=== PATIENT | male | born 1950 | race Caucasian/White ===

== ENCOUNTER 2019-04-16 21:38 | Emergency (ER) | payer MEDICARE, MEDICAID ==
[~2019-04-16] VITALS: Ht 167.6 cm; Wt 102.9 kg
[~2019-04-16 21:38] MED LIST: NO HOME MEDS
[2019-04-16] MEDS ORDERED: normal saline 1000ML IV soln IVB ONE (22:45)
[2019-04-16] MEDS ORDERED: ondansetron/PF 4mg/2ml inj IV ONE (23:05)
[2019-04-16] MEDS ORDERED: morphine 4 MG/ML inj SYRINge IV ONE (23:05)
[2019-04-16 23:36] LABS: BASOPHILS % (AUTO) 0.2 % (0-1); EOSINOPHILS % (AUTO) 0.1 % (0-6); HEMATOCRIT 39.4 % (42.0-52.0); HEMOGLOBIN 13.4 g/dl (14.0-17.9); LYMPHOCYTES # (AUTO) 1.5 X10'3 (1.1-4.8); LYMPHOCYTES % (AUTO) 10.5 % (21-51); MEAN CORPUSCULAR HEMOGLOBIN 29.2 PG (27.0-31.0); MEAN PLATELET VOLUME 8.6 FL (7.4-10.4); MONOCYTES # (AUTO) 1.4 X10'3 (0-0.9); MONOCYTES % (AUTO) 9.3 % (2-12); NEUTROPHILS # (AUTO) 11.8 X10'3 (1.8-7.7); NEUTROPHILS % (AUTO) 79.9 % (42-75); PLATELET COUNT 231 X10'3 (140-440); RED BLOOD COUNT 4.58 X10'6 (4.70-6.10); RED CELL DISTRIBUTION WIDTH 15.7 % (11.5-14.5); WHITE BLOOD COUNT 14.7 X10'3 (4.5-11.0)
--- NOTE | 2019-04-16 23:38 | NUR ---
Patient with urinary retention at clinic today was bladder scanned and told there was 700cc urine. I inserted george without difficulty, less than 50cc of bloody urine out. Bladder scan here in ER shows zero. Patient in pain and feels like bladder is full. Notified MD, CT scan ordered. Medicated for pain.
[2019-04-16 23:46] LABS: ALANINE AMINOTRANSFERASE 40 U/L (12-78); ALBUMIN 3.2 G/DL (3.4-5.0); ALBUMIN/GLOBULIN RATIO 0.7 (1.1-1.5); ALKALINE PHOSPHATASE 99 IU/L (46-116); ANION GAP 9 (8-16); ASPARTATE AMINO TRANSFERASE 25 U/L (10-37); BILIRUBIN,TOTAL 1.1 MG/DL (0.1-1.0); BLOOD UREA NITROGEN 9 MG/DL (7-18); BUN/CREATININE RATIO 9.3 (5.4-32.0); CALCIUM 8.6 MG/DL (8.5-10.1); CHLORIDE 102 MMOL/L (99-107); CREATININE 0.97 MG/DL (0.60-1.10); GLUCOSE 124 MG/DL (70-104); SODIUM 137 MMOL/L (135-145); TOTAL CARBON DIOXIDE 25.7 MMOL/L (24-32); TOTAL PROTEIN 7.5 G/DL (6.4-8.2); eGFR 77 ML/MIN
[2019-04-16 23:52] LABS: POTASSIUM 2.8 MMOL/L (3.5-5.1)
[2019-04-17] MEDS ORDERED: potassium Cl 20 mEq SR tablet PO ONE
[2019-04-17] MEDS ORDERED: magnesium oxide 400mg tablet PO ONE
[2019-04-17 00:05] LABS: COLOR,URINE ORANGE (Yellow); UA COLLECTION TYPE NON-SPECIFIED
[2019-04-17 00:06] LABS: CLARITY,URINE SLIGHTLY CLOUDY (Clear)
[2019-04-17 00:08] LABS: MUCUS STRANDS MANY /LPF (Neg); SQUAMOUS EPITHELIAL CELL,UR MODERATE /LPF (FEW)
[2019-04-17 00:09] LABS: WBC,URINE 30-50 /HPF (0-4)
[2019-04-17 00:10] LABS: TRANSITIONAL EPI CELLS,URINE FEW /HPF
[2019-04-17 00:11] LABS: BACTERIA,URINE FEW /HPF (Neg); RBC,URINE NONE SEEN /HPF (0-2)
[2019-04-17] MEDS ORDERED: morphine 4 MG/ML inj SYRINge IV ONE (01:15)
[2019-04-17 01:21] VITALS: BP 146/87
[2019-04-17] MEDS ORDERED: POTA20TA19 PO (01:44)
== END 2019-04-17 02:15 | disposition home or self-care (01) ==
LOC: ER 21:39
DX: R33.9 Retention of urine, unspecified (principal); K80.20 Calculus of gallbladder without cholecystitis without obstruction; E87.6 Hypokalemia; Z79.899 Other long term (current) drug therapy; Z87.442 Personal history of urinary calculi; Z98.890 Other specified postprocedural states
CPT/HCPCS: 36415; 51702; 74176; 80053; 81001; 85025; 87088; 96374; 96375; 96376; 99284; J2270; J2405; J7030; 81003

== ENCOUNTER 2019-04-18 10:56 | Emergency (ER) | payer MEDICARE, MEDICAID ==
[~2019-04-18] VITALS: Ht 167.6 cm; Wt 104.0 kg
[~2019-04-18 10:56] MED LIST changes: +POTA20TA19 PO
[2019-04-18 11:05] VITALS: BP 146/96
== END 2019-04-18 11:52 | disposition home or self-care (01) ==
LOC: ER 10:56
DX: Z46.6 Encounter for fitting and adjustment of urinary device (principal); Z98.890 Other specified postprocedural states; Z79.899 Other long term (current) drug therapy
CPT/HCPCS: 99281

== ENCOUNTER 2022-03-13 18:37 | Emergency (ER) | payer MEDICARE, MEDICAID ==
[~2022-03-13] VITALS: Ht 170.2 cm; Wt 88.6 kg
[~2022-03-13 18:37] MED LIST changes: -POTA20TA19 PO
[2022-03-13 19:21] LABS: BASOPHILS % (AUTO) 0.6 % (0-1); EOSINOPHILS # (AUTO) 0.2 X10'3 (0-0.9); EOSINOPHILS % (AUTO) 3.3 % (0-6); HEMATOCRIT 46.6 % (42.0-52.0); HEMOGLOBIN 15.5 g/dl (14.0-17.9); LYMPHOCYTES # (AUTO) 1.5 X10'3 (1.1-4.8); LYMPHOCYTES % (AUTO) 27.5 % (21-51); MEAN CORPUSCULAR HEMOGLOBIN 30.2 PG (27.0-31.0); MEAN CORPUSCULAR HGB CONC 33.3 g/dL (33.0-36.5); MEAN CORPUSCULAR VOLUME 90.5 FL (78-98); MEAN PLATELET VOLUME 8.3 FL (7.4-10.4); MONOCYTES # (AUTO) 0.6 X10'3 (0-0.9); MONOCYTES % (AUTO) 11.4 % (2-12); NEUTROPHILS # (AUTO) 3.1 X10'3 (1.8-7.7); NEUTROPHILS % (AUTO) 57.2 % (42-75); PLATELET COUNT 284 X10'3 (140-440); RED BLOOD COUNT 5.15 X10'6 (4.70-6.10); RED CELL DISTRIBUTION WIDTH 14.3 % (11.5-14.5); WHITE BLOOD COUNT 5.4 X10'3 (4.5-11.0)
[2022-03-13 19:36] LABS: ALANINE AMINOTRANSFERASE 23 U/L (12-78); ALBUMIN 3.5 G/DL (3.4-5.0); ALBUMIN/GLOBULIN RATIO 0.8 (1.1-1.5); ALKALINE PHOSPHATASE 86 IU/L (46-116); ANION GAP 6 (8-16); ASPARTATE AMINO TRANSFERASE 13 U/L (10-37); BILIRUBIN,TOTAL 1.1 MG/DL (0.1-1.0); BLOOD UREA NITROGEN 17 MG/DL (7-18); BUN/CREATININE RATIO 18.9 (5.4-32.0); CALCIUM 8.6 MG/DL (8.5-10.1); CHLORIDE 105 MMOL/L (99-107); GLUCOSE 83 MG/DL (70-104); POTASSIUM 3.4 MMOL/L (3.5-5.1); SODIUM 143 MMOL/L (135-145); TOTAL CARBON DIOXIDE 31.9 MMOL/L (24-32); TOTAL PROTEIN 7.7 G/DL (6.4-8.2); eGFR 83 ML/MIN
--- NOTE | 2022-03-13 22:40 | NUR ---
[facility] [phone] PLEASE CALL WHEN ABLE FOR UPDATES
[2022-03-13] MEDS ORDERED: IODIXANOL 320 MG/ML INFUS..BTL 100ML IV ONE (23:32)
[2022-03-14 01:07] VITALS: BP_DIAS 152
[2022-03-14] MEDS ORDERED: metoprolol tartrate 50mg tablet PO ONE (01:20)
[2022-03-14] MEDS ORDERED: LOP25T PO (01:20)
[2022-03-14 01:23] VITALS: BP_SYST 200
== END 2022-03-14 01:31 | disposition home or self-care (01) ==
LOC: ER 18:37
DX: I10 Essential (primary) hypertension (principal); M25.511 Pain in right shoulder; M54.12 Radiculopathy, cervical region; R47.81 Slurred speech; I72.9 Aneurysm of unspecified site; Z87.440 Personal history of urinary (tract) infections; Z98.890 Other specified postprocedural states; Z79.899 Other long term (current) drug therapy
CPT/HCPCS: 36415; 70450; 71046; 71275; 74174; 80053; 84484; 85025; 93005; 99285; Q9967